=== PATIENT | female | born 1965 | race Caucasian/White ===

== ENCOUNTER 2017-06-05 18:59 | Emergency (ER) | payer OTHER ==
[2017-06-05 19:20] VITALS: BP 136/78; PULSE 90; RESP 16; TEMP 99.1; O2SAT 96
--- NOTE | 2017-06-05 20:42 | EDPHY ---
H & P Time Seen by Provider: 06/05/17 19:03 HPI/ROS: 51-year-old female presents complaining of falling down several stairs and twisting her foot. Her friends helped her get to the emergency department she was unable to bear weight initially. Review of systems General no fever no chills no weakness HEENT no eye pain no eye discharge. No eye redness, no sore throat Respiratory no cough, no shortness of breath Cardiac no chest pain, no peripheral edema GI no abdominal pain, no diarrhea, no constipation, no nausea, no vomiting no flank pain, no hematuria, no dysuria Musculoskeletal no myalgias, positive joint pain Heme no easy bruising, no easy bleeding Endo no polyuria, no polydipsia Skin no rashes, no pruritus Neuro no syncope, no dizziness, no headaches Psych is no suicidal ideation, no homicidal ideation Past Medical/Surgical History: Hypothyroidism Social History: Denies alcohol or drug use Smoking Status: Light smoker Physical Exam: 51-year-old female alert and oriented no acute distress nontoxic appearance afebrile Atraumatic normocephalic Neck no JVD Lungs clear to auscultation, no respiratory distress Heart regular rate and rhythm Extremities no cyanosis clubbing edema Except Left foot positive erythema, edema to mid dorsum of foot with tenderness to palpation, distal foot with good capillary refill no tenderness at the ankle no tenderness over the 5th metatarsal. Constitutional: Initial Vital Signs Temperature (C) 37.3 C 06/05/17 19:16 Heart Rate 90 06/05/17 19:16 Respiratory Rate 16 06/05/17 19:16 Blood Pressure 136/78 H 06/05/17 19:16 O2 Sat (%) 96 06/05/17 19:16 O2 Delivery Mode Room Air Allergies/Adverse Reactions: avocado Allergy (Verified 06/05/17 19:15) "certain metals" Allergy (Uncoded 03/26/16 19:18) Home Medications: Medication Instructions Recorded Levothyroxine 03/26/16 Medical Decision Making - Diagnostics Imaging Results: Imaging Impressions Foot X-Ray 06/05/17 19:20 Impression: 1. No definite acute fracture. 2. Consider additional imaging if symptoms persist, if clinically indicated. ED Course/Re-evaluation: Patient seen and evaluated for foot injury after fall down several stairs. Differential diagnosis considered Foot contusion, foot sprain, foot fracture X-rays negative for fracture Impression Foot sprain, foot contusion Plan Osbaldo wrap Ibuprofen or acetaminophen as needed for pain Follow up with primary care physician Departure - Departure Disposition: Home, Routine, Self-Care Clinical Impression: Sprain of left foot, Contusion of left foot Condition: Good Instructions: Foot Contusion (ED), Foot Sprain (ED) Additional Instructions: REST, ICE, ELEVATION Referrals: Matthias Estrada DPM [Doctor of Podiatric Medicine] - As per Instructions Leonela Caceres MD [Primary Care Provider] - As per Instructions
== END 2017-06-05 20:52 | disposition home or self-care (01) ==
LOC: CED 18:59
DX: S93.602A Unspecified sprain of left foot, initial encounter (principal); S90.32XA Contusion of left foot, initial encounter; F17.200 Nicotine dependence, unspecified, uncomplicated; W10.8XXA Fall (on) (from) other stairs and steps, initial encounter
CPT/HCPCS: 73630-PO

== ENCOUNTER → 2018-01-20 | Outpatient (CLI) | payer OTHER | LOC: FIMAGING 15:21 | PROVIDERS: ATTEND Family Medicine | DX: Z12.31 Encounter for screening mammogram for malignant neoplasm of breast (principal) ==